=== PATIENT | female | born 1990 | race Caucasian/White ===

== ENCOUNTER 2019-09-30 11:09 | Outpatient (CLI) | payer OTHER, SELFPAY ==
--- NOTE | ~2019-09-30 | XR_ITS ---
EXAMINATION: XR hand LT min 3V DATE: 09/30/2019 11:40 INDICATION: Left hand pain. TECHNIQUE: 3 views of left hand were obtained. COMPARISON: None. FINDINGS: Bone alignment is normal. No fracture. Joint spaces are well maintained. IMPRESSION: 1. Normal left hand. Reviewed, dictated and finalized at location A. IMPRESSION: 1. Normal left hand.
== END 2019-09-30 11:10 | disposition home or self-care (01) ==
LOC: ANHIMG 11:16
PROVIDERS: PCP Family Medicine; Visit Provider Nurse Practitioner
DX: M79.642 Pain in left hand (principal)
CPT/HCPCS: 73130

== ENCOUNTER 2020-09-30 08:13 | Inpatient (IN) | payer MEDICAID, OTHER, SELFPAY ==
[2020-09-30] VITALS (81 sets, daily range): BP systolic 50–150; BP diastolic 19–93; PULSE 63–186; RESP 12–18; TEMP 36.3–36.9; O2SAT 92–100; BMI 39.0
[2020-09-30] MEDS: LACTATED RINGERS 1,000 ML 999 ML IV CONT ×2 (09:42→10:17)
--- NOTE | 2020-09-30 09:54 | WPDANESEPPF ---
Anes - Initial Pre Proc Eval Procedure: Operation Date: 10/05/20 13:30 Proposed Procedures p Repeat Section - Jimmie Sheldon MD Date/Time: 09/30/20 09:54 Surgeon: Jimmie Sheldon MD Pre Op Diagnosis: C Section Patient Data Age: 30 Gender: F Height: 1.57 m Weight: 96.8 kg Allergies Allergy/AdvReac Type Severity Reaction Status Date / Time adhesive tape Allergy Mild Itching Verified 04/01/19 14:08 cefaclor Allergy Mild hives Verified 09/30/20 08:39 Home Medications Medication Instructions Recorded Confirmed Type vitamin no.49-iron-FA 1 tablet PO .QD tablet 09/09/19 09/30/20 History 6.75 mg iron-200 mcg tablet omeprazole 20 mg PO DAILY 09/08/20 09/30/20 History sertraline 100 mg PO DAILY 09/08/20 09/30/20 History Patient hx anesthesia problems: post op nausea/vomiting Family hx anesthesia problems: none PMFSH Past Medical History Medical History (Updated 09/09/19 @ 20:55 by Aubree Suero NP) Depression GERD without esophagitis Family History Family History (Updated 09/30/20 @ 09:01 by Nilda Harris RN) Grandparent Acute myocardial infarction, Onset Age: 70 Depression Sibling Family history of cardiovascular disease, Onset Age: 31 Depression, Onset Age: 31 Mother Family history of arthritis Depression Father Family history of chronic obstructive pulmonary disease Social History Social History Smoking status: Never smoker Second hand tobacco smoke exposure: No Alcohol intake: never Substance use: never Gender identity (if verbalized by the patient): Female Spiritual care concerns: No Anes - Eval Final PreProcedure Day of Procedure 09/30/20 09:54 Patient weight: obese Heart: regular rate and rhythm Lungs: clear to auscultation and normal air movement Airway: Mallampati scale Neurological: alert and oriented Last oral intake: >/= 8 hours ASA classification: II Emergent: no Anesthetic plan: proceed Anesthesia type and monitoring: regional spinal and standard monitoring Informed Consent: The patient's anesthetic plan and its attendant risks and benefits were discussed with the patient/family/POA. Questions were solicited and answers provided to the satisfaction of the patient/family/POA.
--- NOTE | 2020-09-30 09:54 | LDADM ---
This patient, Nena Dumont, was admitted to Labor/Delivery/Recovery 119 on 09/30/20 at 08:13. Plans for surgery/ and pain management were discussed with patient. Patient/family oriented to hospital policies and general routines including ID bracelet, bed and alarms, visiting hours, pain management, procedures, bathroom and other care routines, personal items, smoking policy, room service/diet and guest tray routines, security routines, and visiting hours. Patient/Family are encouraged to report perceived risks to care and to ask questions if they do not understand what they are told or what they should do. See [facility] for further documentation.
[2020-09-30 09:59] LABS: Basophils Absolute Auto 0.1 K/mm3 (0.0-0.1); Basophils Percent Auto 0.4 % (0.2-1.2); Eosinophils Absolute Auto 0.1 K/mm3 (0-0.3); Eosinophils Percent Auto 0.7 % (0-4.4); Hematocrit 34.1 % (37.0-47.0); Hemoglobin 10.5 g/dL (12.0-15.0); Immature Granulocyte Absolute 0.22 K/mm3 (0.00-0.031); Immature Granulocyte Percent A 1.6 % (0-0.5); Lymphocytes Absolute Auto 1.59 K/mm3 (0.9-3.2); Lymphocytes Percent Auto 11.4 % (18.3-44.2); Mean Corpuscular HGB Conc 30.8 g/dl (32-36); Mean Corpuscular Hemoglobin 25.2 pg (26-34); Mean Platelet Volume 10.9 fl (7.4-10.4); Monocytes Absolute Auto 0.8 K/mm3 (0.1-0.6); Monocytes Percent Auto 5.5 % (2.6-8.5); Neutrophils Absolute Auto 11.2 K/mm3 (1.3-6.7); Neutrophils Percent Auto 80.4 % (45.5-73.1); Platelet Count Result 207 k/mm3 (150-375); Red Blood Count 4.16 M/mm3 (4.2-5.4); Red Cell Distribution Width 14.9 % (11.5-14.5)
[2020-09-30] MEDS: CLINDAMYCIN 900 MG/D5W 50 ML 900 MG/50 ML PIGGYBACK 50 MG IVPB (10:21)
[2020-09-30] MEDS: KETOROLAC 30 MG/ML VIAL (*BKC) IV PUSH ×2 (10:50→19:27)
--- NOTE | 2020-09-30 11:20 | P.PCNOB_ITS ---
OB - Delivery Note Procedure Delivery date: 09/30/20 Procedure: Procedures Operation Date: 09/30/20 10:30 Actual Procedure Side Surgeon p Repeat Section Jimmie Sheldon MD Induction method: none Delivery monitor: external FHT and external uterine Route of delivery: Quantitative Blood Loss (ml): 810 Anesthesia type: Spinal Disposition: PACU Complications: None Narrative: The patient was taken to the operating room where she was prepared and draped in the usual sterile fashion in dorsal supine position with a leftward tilt. She received clindamycin preoperatively. Spinal anesthesia was found to be adequate. A Pfannenstiel skin incision was made along the previous scar line and was carried through to the underlying layer of the fascia. The fascia was incised in the midline and the incision was extended laterally. The fascia was dissected free of the underlying rectus muscles. The rectus muscles were in the midline. The peritoneum was identified, tented up and entered sharply. The peritoneal incision was extended superiorly and inferiorly with good visualization of the bladder. The bladder blade was placed. The vesicouterine peritoneum was identified, tented up and entered sharply. The incision was extended laterally and the bladder flap was developed. The bladder blade was replaced. The uterus was then incised sharply in a transverse fashion along the lower uterine segment. The incision was extended laterally. The infant's head was delivered atraumatically to the sterile field, followed by the body. The nose and mouth were bulb suctioned. After a delay, the cord was clamped and cut. The was handed off the field. Cord blood was collected. The placenta was removed manually and was passed off the field. The uterus was exteriorized and cleared of all clots and debris. The uterine incision was reapproximated using 0 Monocryl in a running, locked fashion. A second imbricating layer oft he same suture was placed. Hemaderm was applied to the bladder flap. Excellent hemostasis resulted as did excellent reapproximation of the normal anatomy. The uterus was returned the abdomen. The pelvis was irrigated copiously with warmed normal saline. Rigorous hemostasis was assured. The fascial layer was reapproximated using 0 Vicryl in a running fashion. The skin was closed with a running, subcuticular stitch of 4 0 Vicryl. Dermaflex was applied externally. Sponge, lap, needle and instrument counts were correct. The patient was taken to the recovery room in stable condition. The went to the nursery in stable condition. I was present and scrubbed the entire procedure. [place] Baby Date of : 09/30/20 Time of : 10:49 Weeks of gestation at delivery: 38 gender: Female Weight (pounds): 7 Weight (ounces): 8 presentation: vertex Placenta delivery description: Spontaneous and Normal Configuration cord vessel description: 3 Vessels and Delayed Cord Clamping score one minute: 8 score five minutes: 9
--- NOTE | 2020-09-30 11:20 | PM.IMHP ---
H&P: HPI History of Present Illness Date/Time: 09/30/20 11:20 30 y/o at 38 6/7 weeks here with contractions. Cervix changed from 1 to 3 cm with frequent contractions. Labor was diagnosed. GBS neg. Prior , desires repeat. Chief Complaint: Contractions Review of Systems Review of Systems: All systems reviewed & are unremarkable except as noted in HPI and below PMFSH Past Medical History Medical History Depression GERD without esophagitis Surgical History Surgical History History of delivery Family History Family History Grandparent Acute myocardial infarction, Onset Age: 70 Depression Sibling Family history of cardiovascular disease, Onset Age: 31 Depression, Onset Age: 31 Mother Family history of arthritis Depression Father Family history of chronic obstructive pulmonary disease Social History Social History Smoking status: Never smoker Second hand tobacco smoke exposure: No Alcohol intake: never Substance use: never Gender identity (if verbalized by the patient): Female Spiritual care concerns: No Meds Home Medications and Allergies Home Medications Medication Instructions Recorded Confirmed Type vitamin no.49-iron-FA 1 tablet PO .QD tablet 09/09/19 09/30/20 History 6.75 mg iron-200 mcg tablet omeprazole 20 mg PO DAILY 09/08/20 09/30/20 History sertraline 100 mg PO DAILY 09/08/20 09/30/20 History Allergies Allergy/AdvReac Type Severity Reaction Status Date / Time adhesive tape Allergy Mild Itching Verified 04/01/19 14:08 cefaclor Allergy Mild hives Verified 09/30/20 08:39 Vital Signs Vital Signs - 24 hr 09/30/20 10:02 Pulse Rate 99 Blood Pressure 150/84 H Exam Const: Orientation/consciousness: patient oriented x3 Other: Well-developed, well-nourished female in no acute distress. Neck: Thyroid: thyroid normal Lymphatic: no lymphadenopathy noted (in neck, axilla or inguinal nodes) Resp: Effort & Inspection: normal respiratory effort Auscultation: clear to auscultation bilaterally Cardio: Rate: regular rate Rhythm: regular rhythm Heart sounds: S1 normal heart sound present and S2 normal heart sound present GI: Other: ABD: Soft, nontender, nondistended, gravid. NST reactive. TOCO: contractions every 2-3 min. : General: Yes no CVA tenderness Other: cervix 3 cm dilated Back/Spine/Pelvis: Back: no CVA tenderness Skin: General skin exam: normal color and no rashes or lesions noted Neuro: General: patient oriented x3 Extrem: Other: Extremities: nontender with no edema Psych: Mental Status: mental status grossly normal Affect: normal affect H&P: Results Labs Labs: Short CBC 09/30/20 Range/Units 09:53 WBC 14.0 H (4.5-10.0) K/mm3 Hgb 10.5 L (12.0-15.0) g/dL Hct 34.1 L (37.0-47.0) % Plt Count 207 (150-375) k/mm3 Assessment and Plan Assessment and plan (1) History of delivery: Code(s): Z98.891 - History of uterine scar from previous surgery Status: Acute Assessment and Plan: A: IUP at 38 6/7 weeks with labor, prior , desires repeat. P: Offered repeat . She understands risks of surgery to include risks of anesthesia, risks of pain, infection, bleeding, blood products, thromboembolic phenomena and damage to adjacent structures such as bowel, bladder, ureters, blood vessels and nerves. She understands all these risks and elects to proceed with surgery.
--- NOTE | 2020-09-30 11:24 | SUR.PHASEI ---
Pt has 200 ml remaining in IV fluids from anesthesia of 1000 ml LR with 40 units Pitocin.
[2020-09-30] MEDS: LACTATED RINGERS 1,000 ML 125 ML IV CONT ×2 (12:15→13:13)
[2020-09-30] MEDS: PHENYLEPHRINE 1,000 MCG/10 ML SYRINGE 100 MCG IV PUSH (12:18)
[2020-09-30] MEDS: OXYTOCIN 30 UNITS/NS 500 ML 30 UNITS/500 ML BAG 125 UNITS IV CONT (12:25)
[2020-09-30 12:51] LABS: Hematocrit 25.6 % (37.0-47.0); Hemoglobin 7.6 g/dL (12.0-15.0)
[2020-09-30] MEDS: ePHEDrine sulfate INJ 50 MG/ML AMPUL 10 MG IV PUSH (12:59)
--- NOTE | 2020-09-30 13:21 | PM.OBPNVD ---
OB - PN: Subj Subjective Date/time seen: 09/30/20 13:21 Called to see patient. She delivered 2.5 hours ago. Now with bp 80/50 and hr 110, small urine output. Hgb 7.6. Uterus firm and just above umbilicus. Transabdominal ultrasound by me shows an empty uterus. Some free fluid seen. Suspect hemoperitoneum. Offered return to OR for laparotomy under general anesthesia. Reviewed risks, benefits and alternatives with patient and her . They understand and elect to proceed. Cross matching 2 units PRBC. OB - PN: Obj Data Labs CBC & Chem 7: 09/30/20 12:32 Labs: Laboratory Results - last 24 hr 09/30/20 09/30/20 09/30/20 09:53 09:53 12:32 WBC 14.0 H RBC 4.16 L Hgb 10.5 L 7.6 L Hct 34.1 L 25.6 L MCV 82.0 MCH 25.2 L MCHC 30.8 L RDW 14.9 H Plt Count 207 MPV 10.9 H Immature Gran % (Auto) 1.6 H Neut % (Auto) 80.4 H Lymph % (Auto) 11.4 L [place] % (Auto) 5.5 Eos % (Auto) 0.7 Baso % (Auto) 0.4 Lymph # (Auto) 1.59 [place] # (Auto) 0.8 H Eos # (Auto) 0.1 Baso # (Auto) 0.1 Abs Immat Gran (auto) 0.22 H Absolute Neuts (auto) 11.2 H Absolute Nucleated RBC 0.0 Nucleated RBC % 0.0 Blood Type O Positive Antibody Screen Negative Crossmatch See Detail OB - PN A/P Time Spent With Patient Time: Total time spent is greater than 50% in coordination of care (as documented) at patient's floor/unit and/or counseling patient:
--- NOTE | 2020-09-30 13:43 | WPDANESEPPF ---
Anes - Initial Pre Proc Eval Procedure: Operation Date: 09/30/20 14:00 Proposed Procedures p Exploratory Laparotomy - Jimmie Sheldon MD Date/Time: 09/30/20 13:43 Surgeon: Jimmie Sheldon MD Pre Op Diagnosis: C Section Patient Data Age: 30 Gender: F Height: 1.57 m Weight: 96.8 kg Last Vital Signs Temp 36.4 C L 09/30/20 11:24 Pulse 125 H 09/30/20 13:42 Resp 16 09/30/20 11:55 BP 77/43 L 09/30/20 13:42 Pulse Ox 100 09/30/20 13:40 Allergies Allergy/AdvReac Type Severity Reaction Status Date / Time adhesive tape Allergy Mild Itching Verified 04/01/19 14:08 cefaclor Allergy Mild hives Verified 09/30/20 08:39 Home Medications Medication Instructions Recorded Confirmed Type vitamin no.49-iron-FA 1 tablet PO .QD tablet 09/09/19 09/30/20 History 6.75 mg iron-200 mcg tablet omeprazole 20 mg PO DAILY 09/08/20 09/30/20 History sertraline 100 mg PO DAILY 09/08/20 09/30/20 History Laboratory Tests 09/30/20 09/30/20 09/30/20 09:53 09:53 09:53 WBC 14.0 K/mm3 H K/mm3 (4.5-10.0) RBC 4.16 M/mm3 L M/mm3 (4.2-5.4) Hgb 10.5 g/dL L g/dL (12.0-15.0) Hct 34.1 % L % (37.0-47.0) MCV 82.0 fl fl (80-100) MCH 25.2 pg L pg (26-34) MCHC 30.8 g/dl L g/dl (32-36) RDW 14.9 % H % (11.5-14.5) Plt Count 207 k/mm3 k/mm3 (150-375) MPV 10.9 fl H fl (7.4-10.4) Immature Gran % (Auto) 1.6 % H % (0-0.5) Neut % (Auto) 80.4 % H % (45.5-73.1) Lymph % (Auto) 11.4 % L % (18.3-44.2) [place] % (Auto) 5.5 % % (2.6-8.5) Eos % (Auto) 0.7 % % (0-4.4) Baso % (Auto) 0.4 % % (0.2-1.2) Lymph # (Auto) 1.59 K/mm3 K/mm3 (0.9-3.2) [place] # (Auto) 0.8 K/mm3 H K/mm3 (0.1-0.6) Eos # (Auto) 0.1 K/mm3 K/mm3 (0-0.3) Baso # (Auto) 0.1 K/mm3 K/mm3 (0.0-0.1) Abs Immat Gran (auto) 0.22 K/mm3 H K/mm3 (0.00-0.031) Absolute Neuts (auto) 11.2 K/mm3 H K/mm3 (1.3-6.7) Absolute Nucleated RBC 0.0 K/mm3 K/mm3 (0.0-0.012) Nucleated RBC % 0.0 % % (0.0-0.2) RPR Pending Blood Type O Positive Antibody Screen Negative Crossmatch See Detail 09/30/20 12:32 WBC RBC Hgb 7.6 g/dL L g/dL (12.0-15.0) Hct 25.6 % L % (37.0-47.0) MCV MCH MCHC RDW Plt Count MPV Immature Gran % (Auto) Neut % (Auto) Lymph % (Auto) [place] % (Auto) Eos % (Auto) Baso % (Auto) Lymph # (Auto) [place] # (Auto) Eos # (Auto) Baso # (Auto) Abs Immat Gran (auto) Absolute Neuts (auto) Absolute Nucleated RBC Nucleated RBC % RPR Blood Type Antibody Screen Crossmatch Patient hx anesthesia problems: post op nausea/vomiting Family hx anesthesia problems: none PMFSH Past Medical History Medical History Depression GERD without esophagitis Surgical History Surgical History History of delivery Family History Family History Grandparent Acute myocardial infarction, Onset Age: 70 Depression Sibling Family history of cardiovascular disease, Onset Age: 31 Depression, Onset Age: 31 Mother Family history of arthritis Depression Father Family history of chronic obstructive pulmonary disease Social History Social History Smoking status: Never smoker Second hand tobacco smoke exposure: No Alcohol intake: never Substance use: never Gender identity (if verbalized by the patient): Female Spiritual care concerns: No
--- NOTE | 2020-09-30 13:44 | SUR.PHASEI ---
1205- Drop in BP noted. See [facility]/ [employer] for frequent VS. 1206- repeat BP 72/42. Fundus firm with no increase in lochia. Lowered head of bed. IV fluids opened. 1208- BP 68/34 Pt states her hearing is muffled. Tried calling anesthesia, but no answer. Paged Dr. Sheldon 1210- BP 75/32 1213- Got through to Xiao Stroud CRNA and informed of drop in BP, pulse 70-100. Vaginal bleeding is normal, incision dry and intact, no increase in abdominal size noted. Order received to give Phenylephrine. Called for someone to bring med to me. 1215- New bag of LR hung at wide open rate. 1218- Phenylephrine 100 mcg given IV 1220- Dr. Sheldon returned page and informed of BP and P ranges. Informed MD that other than her initial fundal massage in recovery she has had a normal amount of lochia in recovery. Pichardo bag has about 25 ml of urine in it. 100 ml was emptied in the OR. BP currently 94/59 1225-BP back down to 73/44 Called Xiao Stroud again and requested her to come. 1227- O2 per non-rebreather mask applied 1229- Xiao Stroud CRNA here and gave pt Phenylephrine 200 mcg IVP 1230- BP 86/54. Normal lochia 1231- Additional Phenylephrine 200mcg given IVP by Xiao Stroud CRNA 1232- Had attempted to start 2nd IV line, but unsuccessful. H&H drawn. 1235- Xiao Stroud CRNA updated Dr. Trujillo. 1241- Additional 200 mcg of Phenylephrine given by Xiao Stroud CRNA 1245- Requested Vascular mechanical project manager to come start IV. 1251- Called Dr. Trujillo and updated on BP's and P. Order received to give Ephedrine. 1252- Called Lab to see if H&H specimen was OK- running now. 1259- Ephedrine 10 mg given IV 1300- 2nd IV line started by Ran Hutchison RN (vascular mechanical project manager) 1303- H&H 7.[address] Sheldon 1304- Dr. Sheldon returned page from nursing station. Informed of H&H and VS, Pt doesn't appear to have any more urine in her pichardo than before. MD will be in to see pt 1310- Dr. Sheldon in to see and assess pt. Bedside U/S performed. Recovery vaginal QBL is 101. 1311- Dr. Trujillo informed of H& H and requested him to come. 1313- Dr. Sheldon and Cassandra in room discussing plan for pt with pt and . New bag of LR hung. Order received to transfuse 2 units of blood. 1315- OR charge nurse informed of emergent case for suspected internal bleeding post C/Section. 1316- Consent for exploratory laparotomy signed. Notified blood bank of order for blood transfusion. 1320- [facility] here to say a prayer with pt and per her request. 1340- Xiao Stroud CRNA and Mateus Mitchell RN from OR here in room for report. Informed him the blood is ready. I will go to blood bank and get it for them when they take pt to the OR. 1344- Pt to OR #6 per bed. and infant remain in room with personal belongings.
[2020-09-30 14:16] LABS: Rapid Plasma Reagin Non-Reactive (NonReactive)
[2020-09-30] MEDS: LACTATED RINGERS 1,000 ML 30 ML IV CONT (14:53)
--- NOTE | 2020-09-30 14:55 | W.PM.PROC2 ---
Procedure Note - Detailed Date of Procedure 09/30/20 Pre-op Diagnosis Hemoperitoneum Post-op Diagnosis same Procedure Performed Laparotomy Evacuation of hemoperitoneum Repair of laceration to left uterine artery Surgeon Jimmie Sheldon MD Anesthesia general Findings Low transverse uterine incision had a caudad J-shaped extension on the left side. Bleeding was apparent located distally to the suture line. Clotted blood in abdomen and pelvis. Otherwise, normal-appearing uterus, tubes and ovaries. Description of Procedure The patient was taken to the operating room where she was prepared and draped in the usual sterile fashion in dorsal supine position. She received vancomycin preoperatively. The Pfannenstiel skin incision was reopened. The fascial incision was reopened. Hemoperitoneum was noted. The pelvis was explored with the findings noted above. The bleeding seemed to be originating from an extension to the left edge of the uterine incision, distal to the previous suture line. Hemostasis was then excellent. The pelvis was irrigated with warmed normal saline. Rigorous hemostasis was assured. The fascial layer was reapproximated using 0 Vicryl in a running fashion. The skin was closed with a running, subcuticular stitch of 4 0 Vicryl. Dermaflex was applied externally. Sponge, lap, needle and instrument counts were correct. The patient received 2 units of PRBC intraoperatively. She patient was taken to the recovery room in stable condition. I was present and scrubbed through the entire procedure. Implants None Estimated Blood Loss 1,500 Drains Yes ([employer]) Pathology none sent Complications None Condition stable Disposition PACU
[2020-09-30] MEDS: fentaNYL CITRATE INJ (*CRX) 100 MCG/2 ML VIAL 25 MCG IV PUSH (16:17)
--- NOTE | 2020-09-30 16:58 | PC.NURSE ---
Patient transferred to post room #283 per stretcher from PACU. Support person present. Oriented to unit, room, information board, rooming in, admission packet and security measures. Patient verbalizes understanding.
--- NOTE | 2020-09-30 16:59 | PM.OBDSVD ---
DS: Admitting Diagnosis Admitting Diagnosis Admitting Diagnosis: IUP at 38 6/7 weeks Labor Prior , desires repeat DS: Discharge Diagnosis Discharge Diagnosis (1) delivery delivered: Code(s): O82 - Encounter for delivery without indication Status: Acute (2) Hemoperitoneum: Code(s): K66.1 - Hemoperitoneum Status: Acute OB - DS: Summary OB Procedures : None OB Procedures Intrapartum: OB Procedures: : None Peripartum Data Procedures: Procedures Operation Date: 09/30/20 10:30 Actual Procedure Side Surgeon p Repeat Section Jimmie Sheldon MD Operation Date: 09/30/20 14:00 Actual Procedure Side Surgeon p Exploratory Laparotomy with control of hemo peritoneum Not Applicable Jimmie Sheldon MD DS: Data Data Completed and Pending Labs on day of discharge: Labs from last 24 hours 09/30/20 09/30/20 09/30/20 12:32 09:53 09:53 WBC RBC Hgb 7.6 L Hct 25.6 L MCV MCH MCHC RDW Plt Count MPV Immature Gran % (Auto) Neut % (Auto) Lymph % (Auto) [place] % (Auto) Eos % (Auto) Baso % (Auto) Lymph # (Auto) [place] # (Auto) Eos # (Auto) Baso # (Auto) Abs Immat Gran (auto) Absolute Neuts (auto) Absolute Nucleated RBC Nucleated RBC % RPR Non-reactive Blood Type O Positive Antibody Screen Negative Crossmatch See Detail 09/30/20 09:53 WBC 14.0 H RBC 4.16 L Hgb 10.5 L Hct 34.1 L MCV 82.0 MCH 25.2 L MCHC 30.8 L RDW 14.9 H Plt Count 207 MPV 10.9 H Immature Gran % (Auto) 1.6 H Neut % (Auto) 80.4 H Lymph % (Auto) 11.4 L [place] % (Auto) 5.5 Eos % (Auto) 0.7 Baso % (Auto) 0.4 Lymph # (Auto) 1.59 [place] # (Auto) 0.8 H Eos # (Auto) 0.1 Baso # (Auto) 0.1 Abs Immat Gran (auto) 0.22 H Absolute Neuts (auto) 11.2 H Absolute Nucleated RBC 0.0 Nucleated RBC % 0.0 RPR Blood Type Antibody Screen Crossmatch Discharge Plan Discharge Attending physician on discharge: Jimmie Sheldon Consulting providers: Jabier Trujillo Discharging Clinician: Jimmie Sheldon Patient Disposition: Home, Self-Care Activity: may shower, may drive after 2 weeks and pelvic rest Diet: regular Wound Care Instructions: incision open to air Discharge Instructions: Education: Mom and Baby Guide Given to: Mother Follow-Up: Call your delivering provider's office for an appointment to be seen in: 4 Weeks Mom and baby should come to the [facility] for the follow-up appointment. Appointment Date/Time: Monday, October 05, 2020 at 9:00 a.m. What to expect at your follow-up visit: Blood Pressure Check Physical Assessment Call [phone] if you are unable to keep your appointment time. BREAST CARE: * Wear a snug supportive bra. * For engorgement discomfort: Breast Feeding: * Apply warm moist washcloths * Express milk as needed to relieve engorgement * Wear loose clothing * For sore nipples: * Identify correct latch-on * Apply warm moist washcloths before and after nursing * Air dry nipples after nursing * May apply Lansinoh cream to nipples ABDOMINAL INCISION: (if applicable) * Allow incision to air dry * Do NOT use lotions for powders on your incision * When showering, allow soap and water to run over the incision, but do not wash incision EPISIOTOMY/PERINEAL CARE: * Change your pad frequently throughout the day * You may take sitz baths several times a day (fill your bathtub with warm water and soak for 20 minutes.) Do NOT bathe in the water * No tub baths until seen by your physician - You may shower ACTIVITY: * Rest as much as possible. * Do not exercise or lift anything heavier than your baby (such as laundry or other children.) * Avoid stairs or driving as much as possible. * Do not put
[2020-09-30] MEDS: SIMETHICONE 80 MG TAB.CHEW PO ×2 (17:16→19:27)
[2020-09-30 19:37] LABS: Hemoglobin 8.5 g/dL (12.0-15.0)
[2020-09-30] MEDS: FUROSEMIDE INJ 40 MG/4 ML VIAL 10 MG IV PUSH (20:23)
[2020-10-01] VITALS: BP 108/68; PULSE 90; RESP 16; TEMP 37.1; O2SAT 98
[2020-10-01] MEDS: IBUPROFEN 600 MG TABLET PO ×4 (01:03→23:35)
[2020-10-01] MEDS: HYDROcodone/acetaminophen (*CRX) 5-325 MG TABLET 1 TAB PO ×7 (01:04→23:35)
[2020-10-01 04:30] VITALS: BP 105/60; PULSE 84; RESP 16; TEMP 36.7; O2SAT 99
[2020-10-01 05:06] LABS: Basophils Absolute Auto 0.1 K/mm3 (0.0-0.1); Basophils Percent Auto 0.3 % (0.2-1.2); Eosinophils Percent Auto 0.1 % (0-4.4); Hematocrit 21.7 % (37.0-47.0); Immature Granulocyte Absolute 0.19 K/mm3 (0.00-0.031); Immature Granulocyte Percent A 1.2 % (0-0.5); Lymphocytes Percent Auto 7.3 % (18.3-44.2); Mean Corpuscular HGB Conc 32.3 g/dl (32-36); Mean Corpuscular Hemoglobin 26.9 pg (26-34); Mean Corpuscular Volume 83.5 fl (80-100); Mean Platelet Volume 11.4 fl (7.4-10.4); Monocytes Percent Auto 6.1 % (2.6-8.5); Neutrophils Absolute Auto 13.9 K/mm3 (1.3-6.7); Platelet Count Result 154 k/mm3 (150-375); Red Cell Distribution Width 15.6 % (11.5-14.5); White Blood Count 16.4 K/mm3 (4.5-10.0)
[2020-10-01] MEDS: SODIUM CHLORIDE 0.9% IV 500 ML IV CONT (05:49)
[2020-10-01] MEDS: FUROSEMIDE INJ 40 MG/4 ML VIAL 10 MG IV PUSH (05:51)
[2020-10-01] MEDS: LANOLIN (LANSINOH) 7.5 GM CREAM 1 APPLIC TOPICAL (06:45)
[2020-10-01] MEDS: DOCUSATE SODIUM 100 MG CAPSULE PO ×2 (06:46→16:39)
[2020-10-01] MEDS: POLYSACCHARIDE IRON COMPLEX 150 MG CAPSULE PO ×2 (06:47→16:39)
[2020-10-01] MEDS: MULTIVIT/MIN/PREN/FOL AC/IRON TABLET 1 TAB PO (06:48)
[2020-10-01] MEDS: SIMETHICONE 80 MG TAB.CHEW PO ×3 (06:48→16:39)
[2020-10-01] MEDS: SERTRALINE HCL 50 MG TABLET 100 MG PO (06:48)
--- NOTE | 2020-10-01 07:51 | PM.OBPNVD ---
OB - PN: Subj Subjective Date/time seen: 10/01/20 07:51 Patient comments: no complaints, pain well controlled and incisional pain baby status: doing well OB - PN: Obj Data Labs CBC & Chem 7: 10/01/20 04:26 Labs: Laboratory Results - last 24 hr 09/30/20 09/30/20 09/30/20 09:53 09:53 09:53 WBC 14.0 H RBC 4.16 L Hgb 10.5 L Hct 34.1 L MCV 82.0 MCH 25.2 L MCHC 30.8 L RDW 14.9 H Plt Count 207 MPV 10.9 H Immature Gran % (Auto) 1.6 H Neut % (Auto) 80.4 H Lymph % (Auto) 11.4 L [place] % (Auto) 5.5 Eos % (Auto) 0.7 Baso % (Auto) 0.4 Lymph # (Auto) 1.59 [place] # (Auto) 0.8 H Eos # (Auto) 0.1 Baso # (Auto) 0.1 Abs Immat Gran (auto) 0.22 H Absolute Neuts (auto) 11.2 H Absolute Nucleated RBC 0.0 Nucleated RBC % 0.0 RPR Non-reactive Blood Type O Positive Antibody Screen Negative Crossmatch See Detail 09/30/20 09/30/20 10/01/20 12:32 19:25 04:26 WBC 16.4 H RBC 2.60 L Hgb 7.6 L 8.5 L 7.0 L Hct 25.6 L 27.0 L 21.7 L MCV 83.5 MCH 26.9 D MCHC 32.3 RDW 15.6 H Plt Count 154 MPV 11.4 H Immature Gran % (Auto) 1.2 H Neut % (Auto) 85.0 H Lymph % (Auto) 7.3 L [place] % (Auto) 6.1 Eos % (Auto) 0.1 Baso % (Auto) 0.3 Lymph # (Auto) 1.20 [place] # (Auto) 1.0 H Eos # (Auto) 0.0 Baso # (Auto) 0.1 Abs Immat Gran (auto) 0.19 H Absolute Neuts (auto) 13.9 H Absolute Nucleated RBC 0.0 Nucleated RBC % 0.0 RPR Blood Type Antibody Screen Crossmatch OB - PN A/P Plan day: 1 Plan: routine care Comments: For plan blood pressure and urine output are stable at this time. Will discontinue [place] and ambulate today. Time Spent With Patient Time: Total time spent is greater than 50% in coordination of care (as documented) at patient's floor/unit and/or counseling patient: Time with patient: less than 15 minutes Review of Systems Review of Systems: All systems reviewed & are unremarkable except as noted in HPI and below Exam Const: General: no acute distress Eyes: General: appearance normal, both eyes and all related structures Neck: Neck: supple and no JVD Thyroid: thyroid normal Resp: Effort & Inspection: normal respiratory effort Auscultation: clear to auscultation bilaterally Cardio: Rate: regular rate Rhythm: regular rhythm GI: Inspection: incision (cdi) Percussion: Yes normal to percussion Auscultation: Hypoactive bowel sounds present : General: Yes bladder normal to palpation External Female Exam: normal external appearance Speculum Exam - Vagina: normal vaginal discharge and No vaginal bleeding Speculum Exam - Cervix: nontender Bimanual exam- vagina & uterus: bladder normal to palpation and No Cervical tenderness present OB/external & speculum: No vaginal bleeding Skin: General skin exam: no rashes or lesions noted Extrem: General: normal to inspection and no edema Psych: Mental Status: mental status grossly normal Affect: normal affect
[2020-10-01 08:00] VITALS: BP 122/56; PULSE 78; RESP 18; TEMP 36.2
[2020-10-01 12:00] VITALS: BP 130/60; PULSE 84; RESP 18; TEMP 36.6
--- NOTE | 2020-10-01 14:06 | WPDANLDPN2 ---
Anes-Prog Note L&D Date/Time: 10/01/20 14:06 Comfortable throughout: section Neuraxial method: spinal Epidural/Spinal procedure site: clean & non-tender Neuro status: Neuro function grossly intact. Cardiovascular status: normal Respiratory status: normal Airway patency: baseline Mental status: baseline Post-Op hydration status: normal Vital Signs: Last Vital Signs Temp 36.6 C 10/01/20 12:00 Pulse 84 10/01/20 12:00 Resp 18 10/01/20 12:00 BP 130/60 10/01/20 12:00 Pulse Ox 99 10/01/20 04:30 Pain score (VAS): 04/03 I/O: Intake & Output 09/30/20 10/01/20 10/01/20 23:59 07:59 15:59 Intake Total 918 610 3578 Output Total 473 523 1909 Balance 575 0 -350 Post-procedural complaints: none Patient feedback: Patient satisfied with anesthetic care.
--- NOTE | 2020-10-01 14:06 | WPDANLDNPN2 ---
Anes-Prog Note L&D-Neuraxial Date/Time: 10/01/20 14:06 Neuraxial medications: intrathecal PF morphine Opiod-related complaints: none Patient feedback: Patient satisfied with post-operative pain management.
[2020-10-01 16:00] VITALS: BP 127/68; PULSE 90; RESP 18; TEMP 36.6
[2020-10-01 19:40] VITALS: BP 125/60; PULSE 92; RESP 16; TEMP 36.8; O2SAT 99
[2020-10-02] MEDS: HYDROcodone/acetaminophen (*CRX) 5-325 MG TABLET 1 TAB PO ×4 (02:40→21:42)
--- NOTE | 2020-10-02 06:53 | P.PNOB_ITS ---
OB - PN: Subj Subjective Date/time seen: 10/02/20 06:53 Patient comments: no complaints and pain well controlled baby status: doing well and nursing well OB - PN: Obj Data Labs CBC & Chem 7: 10/01/20 04:26 OB - PN A/P Plan day: 2 Plan: routine care Time Spent With Patient Time: Total time spent is greater than 50% in coordination of care (as andrea orozco) at patient's floor/unit and/or counseling patient: Time with patient: less than 15 minutes Review of Systems Review of Systems: All systems reviewed & are unremarkable except as noted in HPI and below Exam Const: General: no acute distress Eyes: General: appearance normal, both eyes and all related structures Neck: Neck: supple and no JVD Thyroid: thyroid normal Resp: Effort & Inspection: normal respiratory effort Auscultation: clear to auscultation bilaterally Cardio: Rate: regular rate Rhythm: regular rhythm GI: Inspection: non-distended GI Palp: Yes Soft to palpation, No Tenderness to palpation present (GI) and No Guarding due to palpation present (GI) Auscultation: normal bowel sounds : General: Yes bladder normal to palpation External Female Exam: normal external appearance Speculum Exam - Vagina: normal vaginal discharge and No vaginal bleeding Speculum Exam - Cervix: nontender Bimanual exam- vagina & uterus: bladder normal to palpation and No Cervical tenderness present OB/external & speculum: No vaginal bleeding Skin: General skin exam: no rashes or lesions noted Extrem: General: normal to inspection and no edema Psych: Mental Status: mental status grossly normal Affect: normal affect
[2020-10-02] MEDS: IBUPROFEN 600 MG TABLET PO ×3 (07:54→21:43)
[2020-10-02] MEDS: SIMETHICONE 80 MG TAB.CHEW PO (07:54)
[2020-10-02] MEDS: MULTIVIT/MIN/PREN/FOL AC/IRON TABLET 1 TAB PO (07:54)
[2020-10-02] MEDS: DOCUSATE SODIUM 100 MG CAPSULE PO (07:55)
[2020-10-02] MEDS: POLYSACCHARIDE IRON COMPLEX 150 MG CAPSULE PO (07:55)
[2020-10-02] MEDS: SERTRALINE HCL 50 MG TABLET 100 MG PO (07:55)
[2020-10-02 08:00] VITALS: BP 131/76; PULSE 91; RESP 16; RESP 18; TEMP 36.8
[2020-10-02] MEDS: BISACODYL 10 MG SUPPOSITORY RECTAL (08:02)
[2020-10-02 18:45] VITALS: BP 133/66; PULSE 77; RESP 18; TEMP 36.8; O2SAT 99
[2020-10-03] MEDS: HYDROcodone/acetaminophen (*CRX) 5-325 MG TABLET 1 TAB PO ×3 (01:45→10:06)
[2020-10-03] MEDS: IBUPROFEN 600 MG TABLET PO (04:55)
--- NOTE | 2020-10-03 07:35 | PM.OBPNVD ---
OB - PN: Subj Subjective Date/time seen: 10/03/20 07:35 Patient comments: no complaints and pain well controlled baby status: doing well and nursing well OB - PN: Obj Data Labs CBC & Chem 7: 10/01/20 04:26 OB - PN A/P Plan day: 3 Plan: routine care, discharge home and follow up 6 weeks (4 weeks) Time Spent With Patient Time: Total time spent is greater than 50% in coordination of care (as documented) at patient's floor/unit and/or counseling patient: Time with patient: less than 15 minutes Review of Systems Review of Systems: All systems reviewed & are unremarkable except as noted in HPI and below Exam Const: General: no acute distress Eyes: General: appearance normal, both eyes and all related structures Neck: Neck: supple and no JVD Thyroid: thyroid normal Resp: Effort & Inspection: normal respiratory effort Auscultation: clear to auscultation bilaterally Cardio: Rate: regular rate Rhythm: regular rhythm GI: Inspection: non-distended GI Palp: Yes Soft to palpation, No Tenderness to palpation present (GI) and No Guarding due to palpation present (GI) Auscultation: normal bowel sounds : General: Yes bladder normal to palpation External Female Exam: normal external appearance Speculum Exam - Vagina: normal vaginal discharge and No vaginal bleeding Speculum Exam - Cervix: nontender Bimanual exam- vagina & uterus: bladder normal to palpation and No Cervical tenderness present OB/external & speculum: No vaginal bleeding Skin: General skin exam: no rashes or lesions noted Extrem: General: normal to inspection and no edema Psych: Mental Status: mental status grossly normal Affect: normal affect
--- NOTE | 2020-10-03 07:36 | P.DS_ITS ---
DS: Admitting Diagnosis Admitting Diagnosis Admitting Diagnosis: term iup/prev section/postop anemia DS: Summary Hospital Course Hospital Course: The patient was admitted in active labor. She was scheduled for repeat section. She underwent section. Postoperatively she had a bleed and was reopened with exploratory laparotomy and repair. Her postop day 1 hemoglobin was 7.0. She remained afebrile. She was up, voiding without difficulty, breast-feeding, ambulating, and generally without complaints Time Spent with Patient Time attestation: Total time spent providing and/or coordinating discharge services: Exam Const: General: no acute distress Eyes: General: appearance normal, both eyes and all related structures Neck: Neck: supple and no JVD Thyroid: thyroid normal Resp: Effort & Inspection: normal respiratory effort Auscultation: clear to auscultation bilaterally Cardio: Rate: regular rate Rhythm: regular rhythm GI: Inspection: non-distended GI Palp: Yes Soft to palpation, No Tenderness to palpation present (GI) and No Guarding due to palpation present (GI) Auscultation: normal bowel sounds : General: Yes bladder normal to palpation External Female Exam: normal external appearance Speculum Exam - Vagina: normal vaginal discharge and No vaginal bleeding Speculum Exam - Cervix: nontender Bimanual exam- vagina & uterus: bladder normal to palpation and No Cervical tenderness present OB/external & speculum: No vaginal bleeding Skin: General skin exam: no rashes or lesions noted Extrem: General: normal to inspection and no edema Psych: Mental Status: mental status grossly normal Affect: normal affect Discharge Plan Discharge Attending physician on discharge: Jimmie Sheldon Discharging Clinician: Jimmie Sheldon Patient Disposition: Home, Self-Care Activity: may shower, may drive after 2 weeks and pelvic rest Diet: regular Wound Care Instructions: incision open to air Discharge Instructions: Call or return if temperature above 100.4? F, increased abdominal pain, increased vaginal bleeding or any new problems. Stand Alone Forms: General Discharge Information Follow-up/Referrals: Jimmie Sheldon MD [Physician] - 4 Weeks Discharge Medications: New hydrocodone-acetaminophen 5-325 mg tablet 1 - 2 tablet PO Q6H PRN (Reason: pain) Qty: 30 RF: 0 ibuprofen 600 mg tablet 600 mg PO Q6H PRN (Reason: cramps) Qty: 30 RF: 0 ferrous sulfate 325 mg (65 mg iron) tablet 325 mg PO DAILY Qty: 30 RF: 0 Continued Mini 6.75 mg iron- 200 mcg tablet 1 tablet PO .QD RF: 0 sertraline 100 mg Tablet 100 mg PO DAILY RF: 0 omeprazole 20 mg Tablet,Delayed Release (Dr/Ec) 20 mg PO DAILY RF: 0 Date of admission: 09/30/20 08:13 Primary Care Provider: PHYSICIAN,COMPACTING MACHINE OPERATOR/TENDER Admitting Provider: Jimmie Sheldon Attending physician on admission: Jimmie Sheldon Condition: Stable
[2020-10-03 07:50] VITALS: BP 146/80; PULSE 84; RESP 16; TEMP 37.1; O2SAT 100
[2020-10-03 08:00] VITALS: PULSE 84; RESP 16; O2SAT 100
--- NOTE | 2020-10-03 08:45 | PC.NURSE ---
Consult with pt., mother reports she is using the nipple shield will latch at times without. Mother states she is not pumping and does not want to pump. Mother reports she breastfed first child with shield and did not pump. Discussed pumping to assist with stimulation of milk supply. Offered assist with next feeding, mother declined need. Discussed nipple shield precautions and possible complications. Mother states she is comfortable with current feeding status and will change feeding plan if has weight loss or low output. Reviewed feeding cues, frequencies, duration of feedings, feeding elimination flow sheet, and signs of adequate intake. Mother is feeding as required and waking to feed if needed. is currently meeting outcomes for weight, output, jaundice and feeding frequencies. Mother states she feels confident to continue current feeding plan at home. Reviewed transition to breast milk, signs of adequate intake, and engorgement/relief. Instructed to call ICP if intake/output less than required. Reviewed regular medications mother is taking. Information provided per Samantha. Reviewed community resources on the [facility] website and in the Mom/Baby guide. Information on outpatient services provided. Mother has no further questions at this time.
[2020-10-03] MEDS: SERTRALINE HCL 50 MG TABLET 100 MG PO (10:06)
[2020-10-03] MEDS: MULTIVIT/MIN/PREN/FOL AC/IRON TABLET 1 TAB PO (10:07)
[2020-10-03] MEDS: POLYSACCHARIDE IRON COMPLEX 150 MG CAPSULE PO (10:07)
[2020-10-03] MEDS: DOCUSATE SODIUM 100 MG CAPSULE PO (10:07)
--- NOTE | 2020-10-03 13:23 | PC.NURSE ---
1000-Patient was given the opportunity to view the discharge video Mother & Baby Care, The First Two Weeks and to ask questions. Patient declined viewing the video and has been given the mother/baby guide for home reference.
== END 2020-10-03 13:16 | disposition home or self-care (01) | DRG 540 ==
LOC: ANHLDR 13:20 → ANHOB2 17:02 → ANHLDR 10-06 08:27 → ANHOB2 10-06 08:27
PROVIDERS: Admitting Provider Obstetrics & Gynecology; Visit Provider Obstetrics & Gynecology
PROC: 10D00Z1 Extraction of Products of Conception, Low, Open Approach (ICD-10-PCS; CPT 59514; principal; 2020-09-30 10:30)
PROC: 0UT94ZZ Resection of Uterus, Percutaneous Endoscopic Approach (ICD-10-PCS; principal; 2020-09-30 14:00)
DX: O34.211 Maternal care for low transverse scar from previous cesarean delivery (principal); K66.1 Hemoperitoneum; Z37.0 Single live birth; Z3A.38 38 weeks gestation of pregnancy
CPT/HCPCS: 36415; 36430; 85014; 85018; 85025; 86592; 86850; 86900; 86901; 86920; A9270; J0330; J1885; J1940; J2250; J2274; J2370; J2405; J2590; J2704; J3010; J3370; J7040; J7120; P9016